=== PATIENT | male | born 1985 | race Two or more races ===

== ENCOUNTER 2019-11-28 00:51 | Emergency (ER) | payer SELFPAY ==
[~2019-11-28] VITALS: Ht 177.8 cm; Wt 86.4 kg
[2019-11-28] MEDS ORDERED: ALBUTEROL SULFATE HFA 90 MCG/PUFF 8 GM INHALER IH ONE (03:45)
[2019-11-28 03:53] VITALS: BP 121/87
== END 2019-11-28 04:07 | disposition home or self-care (01) ==
LOC: EMS 00:51
DX: R06.00 Dyspnea, unspecified (principal); F12.90 Cannabis use, unspecified, uncomplicated
CPT/HCPCS: 93005; 94640; J3535; 71045-TC